=== PATIENT | male | born 1970 | race Two or more races ===

== ENCOUNTER 2025-04-15 10:23 | Emergency (ER) | payer MEDICAID, SELFPAY ==
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
[2025-04-15 10:36] VITALS: BMI 23.9
[2025-04-15 10:42] VITALS: BP 143/106; PULSE 122; RESP 18; TEMP 36.4; O2SAT 97
[2025-04-15 11:02] LABS: Basophils # (Auto) 0.1 Thou/mm3 (0.0-0.2); Basophils % (Auto) 1 % (0-2.5); Eosinophils # (Auto) 0.2 Thou/mm3 (0.0-0.5); Eosinophils % (Auto) 1 % (0-10); Hematocrit 42.8 % (41.0-53.0); Hemoglobin 14.0 g/dL (13.5-16.0); Immature Granulocytes Auto 0.07 Thou/mm3 (0.00-0.00); Lymphocytes # (Auto) 2.0 Thou/mm3 (1.0-4.8); Lymphocytes % (Auto) 18 % (10-50); Mean Corpuscular HGB Conc 32.7 g/dl (31.0-37.0); Mean Corpuscular Hemoglobin 26.4 pg (25.0-35.0); Mean Corpuscular Volume 81 fL (80-100); Monocytes # (Auto) 0.7 Thou/mm3 (0.0-0.8); Monocytes % (Auto) 7 % (0-12); Neutrophils # (Auto) 8.0 Thou/mm3 (1.8-7.7); Neutrophils % (Auto) 73 % (37-80); Nucleated Red Blood Cell # 0.00 Thou/mm3 (0.00-0.00); Nucleated Red Blood Cell % 0 /100 WBC (0); Platelet Count 244 Thou/mm3 (140-440); RDW Standard Deviation 42.5 fL (35.1-43.9); Red Blood Count 5.30 Miln/mm3 (4.50-5.90); White Blood Count 10.9 Thou/mm3 (3.8-10.6)
[2025-04-15 11:41] LABS: Acetaminophen < 2.0 mcg/mL (10.0-20.0); Alanine Aminotransferase 18 U/L (10-49); Albumin, Serum 5.0 gm/dL (3.5-5.0); Albumin/Globulin Ratio 1.9 (1.2-2.2); Alcohol, Blood Medical < 3.0 mg/dL (0-10.0); Alkaline Phosphatase 62 U/L (46-116); Anion Gap 13 (7-16); Aspartate Amino Transferase 26 U/L (0-34); BUN/Creatinine Ratio 10 Ratio (12-20); Bilirubin,Total 0.7 mg/dL (0.3-1.2); Blood Urea Nitrogen 10 mg/dL (9-23); Calcium 10.4 mg/dL (8.3-10.6); Calcium (Corrected) 10.4 mg/dL (8.5-10.1); Carbon Dioxide 25.4 mMol/L (20.0-31.0); Chloride 106 mMol/L (98-107); Creatinine (Component) 1.0 mg/dL (0.6-1.3); Estimated Creatinine Clearance 68.0 mL/min (>60); Globulin 2.7 gm/dL (2.3-3.5); Glucose 124 mg/dL (74-106); Osmolality,Calculated 286 (275-295); Potassium 4.0 mMol/L (3.4-5.1); Salicylate < 3.0 mg/dL; Sodium 144 mMol/L (136-145); Total Protein 7.7 gm/dL (5.7-8.2); eGFR > 60 See Note
--- NOTE | 2025-04-15 13:00 | PC.NURSE ---
PT MADE AWARE THAT A UA IS STILL NEEDED,PT STATED, I DONT HAVE TO PEE DR. VALDES MADE AWARE
--- NOTE | 2025-04-15 15:42 | PC.CC ---
Addendum entered by Rayne Heller 04/15/25 15:58: Pt has previous chart- [id number]. Registration was notified and charts will be merged. Original Note: Patient is a 55 year-old male who presents to the hospital for mental health evaluation brought in by [employer]. Monotype Caster made face to face contact with the patient introduced self?s, role, and reason for visit. Patient presents as unkempt and dishelved with hair unkept. Patient appears to be responding to internal stimuli as he talked to self during assessment. During assessment patient stated, I laugh a lot and was not able to meaningfully engage in assessment. Monotype Caster attempted to re-engage patient by asking open ended questions. Patient continued to make bazar comments and not meaningfully engage in assessment. Monotype Caster attempted to get consent to make telephone contact with patient?s [facility] [phone] for collateral information. Patient provided consent for contact brother. Monotype Caster completed a chart review it was noted on previous visits that patient has a mental health. Patient is followed by outpatient mental health services [facility], Psychiatrist, . Monotype Caster made telephone contact [facility] [phone] for collateral information. Brother reported pt is refusing mental health services as well as mental health medication. Brother reported pt is unable to care for self and refuses to shower for multiple days at a time. Brother reported pt has hx of psychiatric holds, and has been placed as[facility] [place] [facility] as well as [place]. [facility] 5150-hold for gravely disabled. Monotype Caster provided update on discharge plan to [facility] Facility to Dr. Hanson, centrifugal station operator Alicia.
--- NOTE | 2025-04-15 18:37 | PD.EDADDENDU ---
Emergency Room Addendum <Ilana Littlejohn - Last Filed: 04/15/25 18:41> Addendum Narrative: 1800: Care assumed from Dr. Hanson (emergency physician). Past medical, surgical, social and family history reviewed. Vitals and home medications reviewed. Results and treatment plan discussed. I will assume the care of the patient at this time and will follow the patient, pending psych placement. The following addendum documentation note is intended to reflect any pending information, findings, or radiology results not included in the patient?s initial chart by the previous shift scribe. Please refer to emergency department record for history and exam. The patient had access and provided personal hygiene, shower, food, water, and daily medications. 0600: Care assumed by Dr. Hanson (emergency physician). Past medical, surgical, social and family history reviewed. Vitals and home medications reviewed. Results and treatment plan discussed. They will assume the care of the patient at this time and will follow the patient, pending psych placement. <Jeff Velazquez DO - Last Filed: 04/15/25 22:10> Addendum Narrative: 1800: Care assumed from Dr. Hanson (emergency physician). Past medical, surgical, social and family history reviewed. Vitals and home medications reviewed. Results and treatment plan discussed. I will assume the care of the patient at this time and will follow the patient, pending psych placement. The following addendum documentation note is intended to reflect any pending information, findings, or radiology results not included in the patient?s initial chart by the previous shift scribe. Please refer to emergency department record for history and exam. The patient had access and provided personal hygiene, shower, food, water, and daily medications. 0600: Care assumed by Dr. Hanson (emergency physician). Past medical, surgical, social and family history reviewed. Vitals and home medications reviewed. Results and treatment plan discussed. They will assume the care of the patient at this time and will follow the patient, pending psych placement. At 10:09 PM the patient is resting comfortably. There have been no outburst. Patient is tolerating food well. Patient is a 5150 hold pending placement at this time.
[2025-04-15 19:24] VITALS: BP 146/91; PULSE 101; RESP 18; TEMP 36.5; O2SAT 98
[2025-04-15 21:12] LABS: Amphetamine/Methamp Scrn,U Negative (Negative); Barbiturate Screen,Urine Negative (Negative); Benzodiazepines Screen,Urine Negative (Negative); Benzoylecgonine Screen, Ur Negative (Negative); Fentanyl Screen,Urine Negative (Negative); Opiate Screen,Urine Negative (Negative); THC Screen,Urine Negative (Negative)
[2025-04-15 22:03] VITALS: BP 132/86; PULSE 74; RESP 19; TEMP 37.1; O2SAT 94
[2025-04-16 00:02] VITALS: BP 133/86; PULSE 69; RESP 18; TEMP 37.1; O2SAT 95
[2025-04-16 02:06] VITALS: BP 129/86; PULSE 76; RESP 19; TEMP 36.8; O2SAT 93
[2025-04-16 04:17] VITALS: BP 131/86; PULSE 71; RESP 17; TEMP 36.9; O2SAT 96
[2025-04-16 06:13] VITALS: BP 132/92; PULSE 82; RESP 16; TEMP 36.4; O2SAT 97
[2025-04-16 07:28] VITALS: BP 130/93; PULSE 88; RESP 16; TEMP 36.4; O2SAT 99
--- NOTE | 2025-04-16 08:01 | PC.CC ---
Patient was accepted to Dr. Samuel El, unit 4. Accepting information was provided by Ann. Patient was provided with accepting information. Alda LEDEZMA provided update to medical team. ARMATURE REPAIRER, to arrange transportation.
--- NOTE | 2025-04-16 08:39 | EDNOTE_ITS ---
Emergency Room Addendum Addendum Narrative: 0600: Care assumed from Dr. Velazquez, the previous shift emergency physician. Past medical, surgical, social and family history reviewed. Vitals and home medications reviewed. I will assume the care of the patient at this time, pending LPS facility placement. Please refer to the emergency department record for history and examination from initial visit.?The following addendum documentation note is intended to reflect any pending information, findings, or radiology results not included in the patient?s initial chart. Patient has been accepted for transfer by Dr. Baker at [facility].
--- NOTE | 2025-04-16 09:39 | PC.NURSE ---
THIS RN CLARIFIED WITH ASSOCIATE CURATOR IF NEED TO CALL SBAR REPORT TO RECEIVING MENTAL HEALTH FACILITY; PER ASSOCIATE CURATOR, YOU DON'T NEED TO CALL FOR SBAR REPORT.
[2025-04-16 11:58] VITALS: BP 138/93; PULSE 94; RESP 15; TEMP 36.8; O2SAT 96
--- NOTE | 2025-04-16 12:13 | PC.NURSE ---
SBAR REPORT GIVEN TO LILO ADMIN DIR AT BEDSIDE. PT UNCOOPERATIVE WITH TRANSFERRING FROM [facility] TO EMS STRETCHER. THIS RN ATTEMPTING TO EDUCATE PT REGARDING TRANSFER TO [facility]. PT STILL NOT COOPERATING. SECURITY AT BEDSIDE; LUCITA BROWN AT BEDSIDE TALKED TO PT. PT EVENTUALLY COOPERATED AND WALKED TO EMS STRETCHER.
== END 2025-04-16 12:27 ==
PROVIDERS: Emergency Provider Emergency Medicine
DX: F20.9 Schizophrenia, unspecified (principal)
CPT/HCPCS: 36415; 80053; 80307; 80320; 80329; 85025; 96127; 99283; G0480